=== PATIENT | female | born 1960 | race Caucasian/White ===

== ENCOUNTER 2023-04-21 08:21 | Day surgery (SDC) | payer OTHER ==
[2023-04-20 12:39] VITALS: BMI 25.7
[2023-04-21] MEDS ORDERED: CYCLOPENTOLATE HCL 1% OPHTH SOLN 2 ML BOTTLE ONE (08:26)
[2023-04-21] MEDS ORDERED: KETOROLAC TROMETHAMINE 0.5% EYE DROP 1 DROP DROPS ONE (08:26)
[2023-04-21] MEDS ORDERED: PHENYLEPHRINE 2.5% OPTHALMIC DROP 2ML BOTTLE ONE (08:26)
[2023-04-21] MEDS ORDERED: TROPICAMIDE 1% OPHTH SOLN 15 ML BOTTLE ONE (08:26)
[2023-04-21] MEDS: PHENYLEPHRINE 2.5% OPHTH SOLN 15 ML BOTTLE OS SCH (08:55)
[2023-04-21] MEDS: OFLOXACIN 0.3% OPHTHALMIC SOLUTION 5 ML BOTTLE ONE (08:55)
[2023-04-21] MEDS: TROPICAMIDE 1% OPHTH SOLN 15 ML BOTTLE OS SCH (08:55)
[2023-04-21] MEDS: KETOROLAC TROMETHAMINE 0.5% EYE DROP 1 DROP DROPS OS SCH (08:55)
[2023-04-21] MEDS: CYCLOPENTOLATE HCL 1% OPHTH SOLN 2 ML BOTTLE OS SCH (08:55)
[2023-04-21] MEDS: OFLOXACIN 0.3% OPHTHALMIC SOLUTION 5 ML BOTTLE OS SCH (09:00)
[2023-04-21] MEDS ORDERED: BACITRACIN/POLYMYXIN OPH OINT 3.5 GM TUBE ONE (09:19)
[2023-04-21] MEDS ORDERED: POVIDONE-IODINE 5% OPHTHALMIC PREP 30 ML SOLUTION ONE (09:20)
[2023-04-21] MEDS ORDERED: BSS (NA/CA/MG/K) BALANCED SALT SOLUTION OPHTH SOLN 15 ML BOTTLE ONE (09:20)
[2023-04-21] MEDS ORDERED: TETRACAINE 0.5% OPHTH SOLN 2 ML BOTTLE ONE (09:20)
[2023-04-21] MEDS ORDERED: BETAXOLOL HCL 0.25% OPHTHALMIC 10 ML DROPSBTL ONE (09:20)
[2023-04-21] MEDS ORDERED: NEO/POLYMYX B SULF/DEXAMETH OPHTHALMIC 5ML BOTTLE ONE (09:20)
[2023-04-21] MEDS ORDERED: EPI-SHUGARCAINE (EPINEPHRINE 0.025% & LIDOCAINE-PF 0.75%) 4ML ONE (09:20)
[2023-04-21] MEDS ORDERED: MIDAZOLAM HCL 2 MG/2 ML SINGLE DOSE VIAL ONE (10:49)
[2023-04-21] MEDS ORDERED: ACETAMINOPHEN 325 MG TABLET (FP) PO PRN (11:32)
[2023-04-21 11:37] VITALS: PULSE 65; RESP 18; TEMP 97.1
[2023-04-21 13:09] VITALS: BP 116/60
== END 2023-04-21 12:50 | disposition home or self-care (01) ==
LOC: FASU 08:21
PROVIDERS: ATTEND Ophthalmology
PROC: 08RK3JZ Replacement of Left Lens with Synthetic Substitute, Percutaneous Approach (ICD-10-PCS; principal; 2023-04-21 11:04)
DX: H25.89 Other age-related cataract (principal)
CPT/HCPCS: 66984; V2632

== ENCOUNTER 2023-05-05 08:43 | Day surgery (SDC) | payer OTHER ==
[2023-04-28 12:13] VITALS: BMI 25.7
[~2023-05-05 08:43] MED LIST: CYCLOPENTOLATE HCL 1% OPHTH SOLN 2 ML BOTTLE OD SCH; OFLOXACIN 0.3% OPHTHALMIC SOLUTION 5 ML BOTTLE OD SCH
[2023-05-05] MEDS ORDERED: PHENYLEPHRINE 2.5% OPTHALMIC DROP 2ML BOTTLE ONE (08:50)
[2023-05-05] MEDS ORDERED: TROPICAMIDE 1% OPHTH SOLN 15 ML BOTTLE ONE (08:50)
[2023-05-05] MEDS: CYCLOPENTOLATE HCL 1% OPHTH SOLN 2 ML BOTTLE ONE (09:10)
[2023-05-05] MEDS: PHENYLEPHRINE 2.5% OPHTH SOLN 15 ML BOTTLE OD SCH (09:10)
[2023-05-05] MEDS: KETOROLAC TROMETHAMINE 0.5% EYE DROP 1 DROP DROPS OD SCH (09:10)
[2023-05-05] MEDS: TROPICAMIDE 1% OPHTH SOLN 15 ML BOTTLE OD SCH (09:10)
[2023-05-05] MEDS: OFLOXACIN 0.3% OPHTHALMIC SOLUTION 5 ML BOTTLE ONE (09:10)
[2023-05-05] MEDS: KETOROLAC TROMETHAMINE 0.5% EYE DROP 1 DROP DROPS ONE (09:15)
[2023-05-05] MEDS ORDERED: MIDAZOLAM HCL 2 MG/2 ML SINGLE DOSE VIAL ONE (09:42)
[2023-05-05] MEDS ORDERED: NEO/POLYMYX B SULF/DEXAMETH OPHTHALMIC 5ML BOTTLE ONE (10:12)
[2023-05-05] MEDS ORDERED: BACITRACIN/POLYMYXIN OPH OINT 3.5 GM TUBE ONE (10:12)
[2023-05-05] MEDS ORDERED: EPI-SHUGARCAINE (EPINEPHRINE 0.025% & LIDOCAINE-PF 0.75%) 4ML ONE (10:12)
[2023-05-05] MEDS ORDERED: POVIDONE-IODINE 5% OPHTHALMIC PREP 30 ML SOLUTION ONE (10:12)
[2023-05-05] MEDS ORDERED: BETAXOLOL HCL 0.25% OPHTHALMIC 10 ML DROPSBTL ONE (10:12)
[2023-05-05] MEDS ORDERED: TETRACAINE 0.5% OPHTH SOLN 2 ML BOTTLE ONE (10:12)
[2023-05-05] MEDS ORDERED: ACETAMINOPHEN 325 MG TABLET (FP) PO PRN (11:05)
[2023-05-05 11:24] VITALS: RESP 19; TEMP 97.5
[2023-05-05 11:40] VITALS: BP 102/68; PULSE 68
== END 2023-05-05 12:15 | disposition home or self-care (01) ==
LOC: FASU 08:43
PROVIDERS: ATTEND Ophthalmology
PROC: 08RJ3JZ Replacement of Right Lens with Synthetic Substitute, Percutaneous Approach (ICD-10-PCS; principal; 2023-05-05 10:41)
DX: H25.89 Other age-related cataract (principal)
CPT/HCPCS: 66984; V2632